=== PATIENT | male | born 1965 | race Caucasian/White ===

== ENCOUNTER 2016-08-19 11:12 | Emergency (ER) | payer OTHER ==
[~2016-08-19] VITALS: Ht 182.9 cm; Wt 63.5 kg
[2016-08-19] MEDS ORDERED: IOHEXOL 350 MG/ML 100 ML (OMNIPAQUE 350) VIAL IV ONE (11:30)
[2016-08-19] MEDS ORDERED: NS 100 ML (IVPB) BAG IV ONE (11:30)
[2016-08-19] MEDS ORDERED: NS IV 1000 ML 1,000 ML IV ONE (11:31)
[2016-08-19 11:38] LABS: MEAN PLATELET VOLUME 9.9 FL (7.4-10.4); RED BLOOD COUNT 4.88 10^6/uL (4.35-5.85); RED CELL DISTRIBUTION WIDTH 13.9 % (10.0-14.5); WHITE BLOOD COUNT 11.2 10^3/uL (4.3-11.0)
--- NOTE | 2016-08-19 11:48 | ED Fall/Injury ---
General Stated Complaint: FALL/MULTIPLE INJURIES Source: patient Exam Limitations: no limitations History of Present Illness Time seen by provider: 11:15 Initial Comments Here with complaint of left lower rib pain and left flank pain after falling through the floor at a house he was working on. He fell both legs through and got stopped by hitting his ribs and flank on a header board. This did completely arrest his fall. This occurred last night. He was seen at outpatient clinic and found to have blood in his urine. Sent here for further evaluation. Denies hitting his head or neck pain. Denies loss of consciousness. He apparently had microscopic blood in his urine. Denies breathing problems but states it hurts with deep breathing. Denies diarrhea. Occurred: yesterday Severity: moderate Injuries/Pain Location: chest, abdomen, back Loss of Consciousness: no loss of consciousness Modifying Factors: Improves With Immobilization, Worse With Movement Associated Symptoms (Fall): Abdominal Pain, Chest Pain, No Confusion, No Lightheadedness, Muscle Spasms, No Nausea/Vomiting, No Neck Pain, No Shortness of Air Allergies and Home Medications Allergies Coded Allergies: No Allergy Information Available (Unverified , 08/19/16) Home Medications Hydrocodone/Acetaminophen 1 Each Tablet, 1-2 EACH PO Q6H PRN for PAIN-MODERATE, #20 Ref 0 Prescribed by: JOO SMITH on 08/19/16 1311 Constitutional: see HPI, No chills, No fever Eyes: No Symptoms Reported Ears, Nose, Mouth, Throat: no symptoms reported Respiratory: see HPI Cardiovascular: see HPI Gastrointestinal: see HPI, No nausea, No vomiting Genitourinary: see HPI, hematuria Musculoskeletal: back pain, muscle pain Skin: change in color, lesions Psychiatric/Neurological: No Symptoms Reported All Other Systems Reviewed Negative Unless Noted: Yes Past Ifpljrv-Rlobak-Fkpwnz Hx Patient Social History Alcohol Use: Denies Use Recreational Drug Use: No Smoking Status: Never a Smoker Recent Foreign Travel: No Contact w/Someone Who Travel: No Surgeries HX Surgeries: No Respiratory Hx Respiratory Disorders: No Cardiovascular Hx Cardiac Disorders: No Neurological Hx Neurological Disorders: No Genitourinary Hx Genitourinary Disorders: No Gastrointestinal Hx Gastrointestinal Disorders: No (tetanus) Musculoskeletal Hx Musculoskeletal Disorders: No Endocrine Hx Endocrine Disorders: No HEENT HX ENT Disorders: No Cancer Hx Cancer: No Psychosocial Hx Psychiatric Problems: No Reviewed Nursing Assessment Reviewed/Agree w Nursing PMH: Yes Family Medical History Significant Family History: No Pertinent Family Hx Physical Exam Vital Signs Vital Sign - Last 12Hours 08/19/16 13:25 Pulse 70 Resp 18 Pulse Ox 99 Capillary Refill : General Appearance: WD/WN, mild distress HEENT: PERRL/EOMI, pharynx normal Neck: full range of motion, supple Cardiovascular: regular rate, rhythm, no murmur Respiratory: lungs clear, normal breath sounds, no respiratory distress, other (tender to left low rib margin. Moderate abrasion to posterior rib margin and across midline back.) Gastrointestinal: soft, tenderness (left upper quadrant and left flank) Back: normal inspection, no CVA tenderness, no vertebral tenderness Extremities: non-tender, normal inspection Neurologic/Psychiatric: alert, oriented x 3 Skin: warm/dry, ecchymosis, other (abrasion to left flank and left low rib margin that goes from the left flank to mid back. Approximately 6 x 18 cm.) Thaddeus Coma Score Best Eye Response: (4) Open Spontaneously Best Verbal Response: (5) Oriented Best Motor Response: (6) Obeys Commands Progress/Results/Core Measures Results/Orders Lab Results Laboratory Tests Test 08/19/16 11:24 08/19/16 12:50 Range/Units White Blood Count 11.2 H 4.3-11.0 10^3/uL Red Blood Count 4.88 4.35-5.85 10^6/uL Hemoglobin 16.0 13.3-17.7 G/DL Hematocrit 47 40-54 % Mean Corpuscular Volume 97 80-99 FL Mean Corpuscular Hemoglobin 33 25-34 PG Mean Corpuscular Hemoglobin Concent 34 32-36 G/DL Red Cell Distribution Width 13.9 10.0-14.5 % Platelet Count 274 130-400 10^3/uL Mean Platelet Volume 9.9 7.4-10.4 FL Sodium Level 139 135-145 MMOL/L Potassium Level 3.3 L 3.6-5.0 MMOL/L Chloride Level 102 98-107 MMOL/L Carbon Dioxide Level 29 21-32 MMOL/L Anion Gap 8 5-14 MMOL/L Blood Urea Nitrogen 13 7-18 MG/DL Creatinine 1.05 0.60-1.30 MG/DL Estimat Glomerular Filtration Rate > 60 BUN/Creatinine Ratio 12 Glucose Level 119 H 70-105 MG/DL Calcium Level 9.6 8.5-10.1 MG/DL Total Bilirubin 0.6 0.1-1.0 MG/DL Direct Bilirubin 0.2 0.0-0.3 MG/DL Indirect Bilirubin 0.4 MG/DL Aspartate Amino Transf (AST/SGOT) 21 5-34 U/L Alanine Aminotransferase (ALT/SGPT) 14 0-55 U/L Alkaline Phosphatase 101 40-136 U/L Total Protein 7.1 6.4-8.2 G/DL Albumin 4.2 3.2-4.5 G/DL Serum Alcohol < 10 <10 MG/DL Urine Color YELLOW Urine Clarity CLEAR Urine pH 8 5-9 Urine Specific [place] 1.010 L 1.016-1.022 Urine Protein 1+ H NEGATIVE Urine Glucose (UA) NEGATIVE NEGATIVE Urine Ketones NEGATIVE NEGATIVE Urine Nitrite NEGATIVE NEGATIVE Urine Bilirubin NEGATIVE NEGATIVE Urine Urobilinogen NORMAL NORMAL MG/DL Urine Leukocyte Esterase NEGATIVE NEGATIVE Urine RBC (Auto) NEGATIVE NEGATIVE Urine RBC NONE /HPF Urine WBC NONE /HPF Urine Squamous Epithelial Cells RARE /HPF Urine Crystals NONE /LPF Urine Bacteria NEGATIVE /HPF Urine Casts NONE /LPF Urine Mucus NEGATIVE /LPF Urine Culture Indicated NO My Orders Orders - JOO SMITH MD Cbc No Diff (08/19/16 11:21) Basic Metabolic Panel (08/19/16 11:21) Liver Panel (08/19/16 11:21) Alcohol (08/19/16 11:21) Ua Culture If Indicated (08/19/16 11:21) Saline Lock/Iv-Start (08/19/16 11:21) Ct Chest/Abdomen/Pelvis W (08/19/16 11:21) Iohexol Injection (Omnipaque 350 Mg/Ml 1 (08/19/16 11:30) Ns (Ivpb) (Sodium Chloride 0.9% Ivpb Bag (08/19/16 11:30) Ns Iv 1000 Ml (Sodium Chloride 0.9%) (08/19/16 11:31) Dipht,Pertuss(Acell),Tet Adult (Boostrix (08/19/16 11:51) Fentanyl Injection (Sublimaze Injection (08/19/16 12:42) Hydrocodone/Apap 7.5/325 Tab (Lortab 7. (08/19/16 12:42) Incentive Spirometryrt Initial (08/19/16 12:42) Incentive Spirometry (Nursing) Q2H (08/19/16 12:42) Medications Given in ED Current Medications Medications Dose Ordered Sig/Raúl Route Start Time Stop Time Status Last Admin Dose Admin Iohexol 100 ml ONCE ONCE IV 08/19/16 11:30 08/19/16 11:31 DC 08/19/16 11:34 100 ML Sodium Chloride 100 ml ONCE ONCE IV 08/19/16 11:30 08/19/16 11:31 DC 08/19/16 11:34 80 ML Sodium Chloride 1,000 ml @ 0 mls/hr Q0M ONCE IV 08/19/16 11:31 08/19/16 11:32 DC 08/19/16 11:51 0 MLS/HR Vital Signs/I&O Vital Sign - Last 12Hours 08/19/16 13:25 Pulse 70 Resp 18 Pulse Ox 99 Progress Note : Progress Note Seen and evaluated. IV, labs, UA, normal saline [address] chest, abdomen and pelvis ordered. Tetanus ordered. Monitor patient. Rib fractures noted. Fentanyl 50 g IV and hydrocodone 7.5 by mouth given. RT for incentive spirometer teaching. I did discuss the case with Dr. Michele at 1300. He will see patient in follow-up as needed. Patient and family informed of findings. Discharged home with return precautions. Patient verbalize understanding instructions and agreement with plan. ECG Initial ECG Impression Date: August 19, 2016 Diagnostic Imaging Diagonstic Imaging: CT Plain Films/CT/US/NM/MRI: chest, abdomen, pelvis Comments NAME: CABO [facility] REC#: [id number] PT STATUS: REG ER : 1965 PHYSICIAN: JOO SMITH MD ADMIT DATE: 08/19/16/ER Signed Date of Exam: 08/19/16 CT CHEST/ABDOMEN/PELVIS W PROCEDURE: CT chest, abdomen, and pelvis with contrast. TECHNIQUE: Multiple contiguous axial images were obtained through the chest, abdomen, and pelvis after the administration of intravenous contrast. INDICATION: Left upper quadrant and left flank pain. CONTRAST: 100 mL of Omnipaque 350 was administered intravenously. FINDINGS: CT CHEST: The lungs demonstrate no significant consolidation, mass, or suspicious nodule. There is minimal dependent atelectasis in the lower lobes bilaterally. The heart size is normal. The thoracic aorta is normal in caliber. There is no mediastinal mass. No hilar lymphadenopathy. No axillary lymphadenopathy. No pericardial or pleural effusion. The osseous structures appear grossly unremarkable. CT ABDOMEN/PELVIS: The liver demonstrates a hypodense lesion measuring 0.8 cm near the falciform ligament which is too small to accurately characterize. This is a common location for focal hepatic steatosis. The gallbladder is contracted with no calcified stone or CT evidence of cholecystitis. The pancreas, spleen, and adrenal glands appear unremarkable. The abdominal aorta is normal in caliber. No periaortic significantly enlarged lymph nodes are seen. No significant free fluid or fluid collection in the abdomen or pelvis is seen. The prostate appears mildly enlarged measuring 4.5 cm in transverse dimension and associated with nonspecific calcifications. The urinary bladder appears unremarkable. The appendix appears normal. The osseous structures appear grossly unremarkable. IMPRESSION: CT CHEST: Minimal dependent atelectasis in the posterior lower lungs. No significant abnormality. CT ABDOMEN/PELVIS: Minimal enlargement of the prostate gland. No acute process. Dictated by: Dictated on workstation # [id number] Dict: 08/19/16 1149 Trans: 08/19/16 1211 Interpreted by: IFRAH BRO MD Electronically signed by: IFRAH BRO MD 08/19/16 1211 ADDENDUM REPORT ADDENDUM: Dr. Smith has called to discuss some the CT chest portion. History of fall is actually provided with tenderness in the posterior lower left chest wall region. I agree with Dr. Smith that there are nondisplaced rib fractures involving the posterior aspect of the left 12th and the left 11th ribs. IMPRESSION: CT chest: 1. Nondisplaced left 12th and 11th rib fractures. 2. Minimal dependent atelectasis in the lower lungs. CT of the abdomen and pelvis: Minimal enlargement of the prostate gland. No acute process. Dictated by: Dictated on workstation # [id number] Interpreted by: IFRAH BRO MD Electronically signed by:IFRAH BRO MD 08/19/16 1240 Departure Impression Impression: Primary Impression: Multiple fractures of ribs, left side, initial encounter for closed fracture Additional Impressions: Back contusion Qualified Codes: S20.222A - Contusion of left back wall of thorax, initial encounter Abrasion Disposition: 01 HOME, SELF-CARE Condition: Stable Departure-Patient Inst. Decision time for Depature: 13:08 Referrals: NO,LOCAL PHYSICIAN (PCP/Family) Primary Care Physician Patient Instructions: CHEST CONTUSION, Rib Fracture (DC), Skin Abrasions (DC) Add. Discharge Instructions: Use incentive spirometer several times hourly while awake. You may take ibuprofen 800 mg every 8 hours as needed for pain. You may take Tylenol 1000 mg every 8 hours as needed for pain if you are not taking prescribed pain medicine. Drink plenty of fluids. He may follow up with your doctor or the trauma surgeon Dr. Graham in a few days for recheck and as needed. Return for worse pain, fever, vomiting, weakness, breathing problems or other concerns as needed. Scripts Hydrocodone/Acetaminophen (Hydrocodon -Acetaminophen 5-325) 1 Each Tablet 1-2 EACH PO Q6H Y for PAIN-MODERATE, #20 TAB 0 Refills Prov: JOO SMITH MD 08/19/16 Copy Copies To 1: ELENO GRAHAM TIMOTHY D MD August 19, 2016 11:48
[2016-08-19] MEDS ORDERED: TETANUS,DIPTH,PERTUSS P/F (BOOSTRIX) 0.5 ML VIAL IM STA (11:51)
[2016-08-19 11:58] LABS: ALANINE AMINOTRANSFERASE 14 U/L (0-55); ALBUMIN 4.2 G/DL (3.2-4.5); ANION GAP 8 MMOL/L (5-14); ASPARTATE AMINO TRANSFERASE 21 U/L (5-34); BILIRUBIN,DIRECT 0.2 MG/DL (0.0-0.3); BILIRUBIN,INDIRECT 0.4 MG/DL; BILIRUBIN,TOTAL 0.6 MG/DL (0.1-1.0); BLOOD UREA NITROGEN 13 MG/DL (7-18); BUN/CREATININE RATIO 12; CALCIUM 9.6 MG/DL (8.5-10.1); CARBON DIOXIDE 29 MMOL/L (21-32); CHLORIDE 102 MMOL/L (98-107); CREATININE SERUM 1.05 MG/DL (0.60-1.30); GFR ESTIMATED > 60; GLUCOSE 119 MG/DL (70-105); POTASSIUM 3.3 MMOL/L (3.6-5.0); SODIUM 139 MMOL/L (135-145); TOTAL PROTEIN 7.1 G/DL (6.4-8.2)
[2016-08-19 12:00] LABS: ALCOHOL < 10 MG/DL (<10)
--- NOTE | 2016-08-19 12:06 | Diagnostic Imaging Report ---
PROCEDURE: CT chest, abdomen, and pelvis with contrast. TECHNIQUE: Multiple contiguous axial images were obtained through the chest, abdomen, and pelvis after the administration of intravenous contrast. INDICATION: Left upper quadrant and left flank pain. CONTRAST: 100 mL of Omnipaque 350 was administered intravenously. FINDINGS: CT CHEST: The lungs demonstrate no significant consolidation, mass, or suspicious nodule. There is minimal dependent atelectasis in the lower lobes bilaterally. The heart size is normal. The thoracic aorta is normal in caliber. There is no mediastinal mass. No hilar lymphadenopathy. No axillary lymphadenopathy. No pericardial or pleural effusion. The osseous structures appear grossly unremarkable. CT ABDOMEN/PELVIS: The liver demonstrates a hypodense lesion measuring 0.8 cm near the falciform ligament which is too small to accurately characterize. This is a common location for focal hepatic steatosis. The gallbladder is contracted with no calcified stone or CT evidence of cholecystitis. The pancreas, spleen, and adrenal glands appear unremarkable. The abdominal aorta is normal in caliber. No periaortic significantly enlarged lymph nodes are seen. No significant free fluid or fluid collection in the abdomen or pelvis is seen. The prostate appears mildly enlarged measuring 4.5 cm in transverse dimension and associated with nonspecific calcifications. The urinary bladder appears unremarkable. The appendix appears normal. The osseous structures appear grossly unremarkable. IMPRESSION: CT CHEST: Minimal dependent atelectasis in the posterior lower lungs. No significant abnormality. CT ABDOMEN/PELVIS: Minimal enlargement of the prostate gland. No acute process. Dictated by: Dictated on workstation # [id number]
[2016-08-19] MEDS ORDERED: fentaNYL INJECTION 100 MCG/2 ML AMP IVP STA (12:42)
[2016-08-19] MEDS ORDERED: HYDROcodone/APAP 7.5 MG/325 MG (LORTAB, LORCET PLUS) TABLET PO STA (12:42)
[2016-08-19 13:03] LABS: BILIRUBIN,URINE NEGATIVE (NEGATIVE); KETONES,URINE NEGATIVE (NEGATIVE); LEUKOCYTE ESTERASE ,URINE NEGATIVE (NEGATIVE); NITRITE,URINE NEGATIVE (NEGATIVE); PH,URINE 8 (5-9); PROTEIN,URINE 1+ (NEGATIVE); UROBILINOGEN,URINE NORMAL (NORMAL)
[2016-08-19] MEDS ORDERED: HYDR-3812 PO (13:11)
[2016-08-19 13:15] LABS: SQUAMOUS EPITHELIAL CELL,UR RARE /HPF
[2016-08-19 13:25] VITALS: BP 106/70
== END 2016-08-19 13:26 | disposition home or self-care (01) ==
LOC: EDUNIT# 11:12 → ER 11:15
DX: S22.42XA Multiple fractures of ribs, left side, initial encounter for closed fracture (principal); S20.412A Abrasion of left back wall of thorax, initial encounter; S30.811A Abrasion of abdominal wall, initial encounter; Z23 Encounter for immunization; R31.29 Other microscopic hematuria; W13.3XXA Fall through floor, initial encounter; Y93.E9 Activity, other interior property and clothing maintenance; Y92.019 Unspecified place in single-family (private) house as the place of occurrence of the external cause
CPT/HCPCS: 36415; 71260; 74177; 80048; 80076; 80320; 81000; 85027; 90715; 94664

== ENCOUNTER 2017-06-08 14:12 | Observation (INO) | payer OTHER ==
[~2017-06-08] VITALS: Ht 182.9 cm; Wt 69.5 kg
[~2017-06-08 14:12] MED LIST changes: -ceFAZolin 1,000 MG (ANCEF) VIAL ONE
[2017-06-08 14:20] VITALS: BP 129/84
[2017-06-08] MEDS ORDERED: CATHETER FLUSH 10 ML SYR IV PRN (14:30)
[2017-06-08] MEDS ORDERED: fentaNYL INJECTION 100 MCG/2 ML AMP IV PRN (14:30)
[2017-06-08] MEDS ORDERED: NS IV 1000 ML 1,000 ML IV SCH (14:30)
[2017-06-08] MEDS ORDERED: ONDANSETRON 4 MG/2 ML (SDV) Z0FRAN IV PRN (14:30)
--- NOTE | 2017-06-08 14:37 | History & Physical-Surgical ---
HPO-Surgical History of Present Illness Chief Complaint: This is a 52 year old male who was referred to our office from Urgent Care for right lower quadrant pain. Patient reports that the pain started last night around 5:00 PM and was very sharp around the umbilicus. He reports that as the night progressed the pain continued by localized to the RLQ. He denies any fever or chills, no diarrhea but does reports constipation. No nausea or vomiting. He does report a headache but reports he has not had anything to eat today and very little to drink. He reports that he presented to Urgent Care this morning and lab work was perfromed which showed an elevated WBC at 13.08. He was then sent for a CT scan where it showed an acute appenditiis. Diagnosis/Surgical Indication: Acute Appendicitis Procedure: Laparoscopic Appendectomy Date of Surgery: Jun 08, 2017 Weight (Pounds): 153 Weight (Ounces): 3.0 Height (Feet): 6 Height (Inches): 0.00 Allergies and Home Medications Allergies Coded Allergies: No Allergy Information Available (Unverified , 08/19/16) Home Medications Hydrocodone Bit/Acetaminophen 1 Each Tablet, 1-2 EACH PO Q6H PRN for PAIN- MODERATE Prescribed by: JOO SMITH on 08/19/16 1311 Patient Home Medication List Home Medication List Reviewed: Yes Past Vctmbuw-Lhabxv-Zcmmez Hx Patient Social History Recent Foreign Travel: No Contact w/other who traveled: No Recent Hopitalizations: No Immunizations Up To Date Tetanus Booster (TDap): Unknown Seasonal Allergies Seasonal Allergies: No Surgeries No Respiratory No Cardiovascular No Neurological No Genitourinary No Gastrointestinal No Musculoskeletal No Endocrine History of Endocrine Disorders: No HEENT History of HEENT Disorders: No Cancer No Psychosocial History of Psychiatric Problem: No Integumentary History of Skin or Integumenta: No Blood Transfusions History of Blood Disorders: No Family Medical History Significant Family History: No Pertinent Family Hx Exam Vital Signs B/P: 110/60 Wt: 160.6 Ht: 6'0" Labs WBC 13.08 Hgb: 15.2 Hct: 45.0 Plt: 272 NA: 137 K: 4.4 CL: 100 CO2: 31 Creat: 0.9 GFR: 96 BUN: 17 CRP: 2.4 General Appearance: Alert, Oriented X3, Cooperative, No Acute Distress Respiratory: Clear to Auscultation, Normal Air Movement Cardiovascular: Regular Rate Abdominal: Normal Bowel Sounds, Soft, Other (Tenderness RLQ with palpation) Extremities: No Clubbing, No Cyanosis, No Edema, Normal Pulses, No Tenderness/ Swelling Skin: No Rashes, No Breakdown, No Significant Lesion Neuro: Normal Gait, Normal Speech Psych/Mental Status: Mental Status NL, Mood NL Assessment/Plan Assessment and Plan A 52 year old male with Acute appendicitis. The risks, benefits, and home care instructions were explained to patient. At this time we will proceed with a laparoscopic appendectomy. Problems: Admission Diagnosis Acute Appendicitis Copy Copies To 1: CARYN MAXWELL MD, DUSTIN L APRN Jun 08, 2017 2:37 pm
[2017-06-08] MEDS ORDERED: LIDOCAINE PF 2% 5 ML (XYLOCAINE) VIAL ONE (14:51)
[2017-06-08] MEDS ORDERED: proPOfol 200 MG/20 ML (DIPRIVAN) VIAL IV ONE (14:51)
[2017-06-08] MEDS ORDERED: ONDANSETRON 4 MG/2 ML (SDV) Z0FRAN ONE (14:51)
[2017-06-08] MEDS ORDERED: DEXAMETHASONE 10 MG/ML (DECADRON) 1 ML VIAL ONE (14:51)
[2017-06-08] MEDS ORDERED: BUP/EPI 0.5% 1:200,000 (SENSORCAINE) 30 ML VIAL ONE (14:52)
[2017-06-08] MEDS ORDERED: fentaNYL INJECTION 100 MCG/2 ML AMP ONE (14:52)
[2017-06-08] MEDS ORDERED: MIDAZOLAM 2 MG/2 ML (VERSED) VIAL ONE (14:52)
--- NOTE | 2017-06-08 14:54 | Progress Note-Pre Operative ---
Pre-Operative Progress Note H&P Reviewed The H&P was reviewed, patient examined and no changes noted. Date Seen by Provider: Jun 08, 2017 Time Seen by Provider: 14:45 Date H&P Reviewed: Jun 08, 2017 Time H&P Reviewed: 14:45 Pre-Operative Diagnosis: acute appendicitis CARYN MAXWELL MD Jun 08, 2017 14:54
[2017-06-08] MEDS: LACTATED RINGERS 1,000 ML IV PRN ×2 (15:00→15:30)
[2017-06-08] MEDS ORDERED: CIPROFLOXACIN IV 400MG/200ML 200 ML IV SCH ×2 (15:00→18:00)
[2017-06-08] MEDS: metroNIDAZOLE 500MG/100ML IVPB 100 ML IV SCH ×2 (15:02→21:00)
[2017-06-08] MEDS ORDERED: SEVOFLURANE (ULTANE) 15 ML INHAL SOLN ONE (15:39)
[2017-06-08] MEDS ORDERED: ROCURONIUM 10 MG/ML 5 ML SYRINGE IV ONE (15:39)
[2017-06-08] MEDS ORDERED: PHENYLEPHRINE 100 MCG/ML 10 ML (ANESTHESIA) SYR ONE (15:39)
[2017-06-08] MEDS ORDERED: morphine INJ 10 MG/ML 1ML (SYR OR VIAL) IVP PRN (15:45)
[2017-06-08] MEDS ORDERED: fentaNYL INJECTION 100 MCG/2 ML AMP IVP PRN (15:45)
[2017-06-08] MEDS ORDERED: HYDROmorphone (DILAUDID) 2 MG/ML VIAL IVP PRN (15:45)
[2017-06-08] MEDS ORDERED: ONDANSETRON 4 MG/2 ML (SDV) Z0FRAN IVP PRN (15:45)
[2017-06-08] MEDS ORDERED: ceFAZolin 1,000 MG (ANCEF) VIAL IV ONE (15:45)
--- NOTE | 2017-06-08 15:52 | Progress Note-Post Operative ---
Post-Operative Progess Note Surgeon (s)/Farm Loan Representative (s) Surgeon CARYN MAXWELL MD Farm Loan Representative: curt bowman NOZZLEMAN Pre-Operative Diagnosis acute appendicitis Post-Operative Diagnosis same Procedure & Operative Findings Date of Procedure 06/08/17 Procedure Performed/Findings laparoscopic appendectomy Anesthesia Type GET Estimated Blood Loss Estimated blood loss (mL): minimal Specimens/Packing Specimens Removed appendix CARYN MAXWELL MD Jun 08, 2017 3:52 pm
[2017-06-08] MEDS ORDERED: HYDROcodone/APAP 7.5 MG/325 MG (LORTAB, LORCET PLUS) TABLET PO PRN (16:00)
--- NOTE | 2017-06-08 16:00 | Discharge Inst-Surgical ---
D/C Lap Instructions-ALISSA New, Converted, or Re-Newed RX: RX on Chart Follow Up Appt in 2 weeks Activity as tolerated No driving for 24 hours No driving while on pain medications Incentive Spirometry use every 2 hours while awake Regular Diet Symptoms to Report: Fever over 101 degree F, Nausea/Vomiting Infection Signs and Symptoms to report: Increased redness, Foul odor of wound, Increased drainage Bathing instructions: May shower Operative Area Clean/Dry; Keep incision clean/dry If any problems/questions: Contact your physician or go to Emergency Room CARYN MAXWELL MD Jun 08, 2017 4:00 pm
[2017-06-08] MEDS ORDERED: NEOSTIGMINE 1 MG/ML 5 ML SYRINGE ONE (16:03)
[2017-06-08] MEDS ORDERED: GLYCOPYRROLATE 0.2 MG/ML (ROBINUL) 2 ML VIAL ONE (16:03)
[2017-06-08] MEDS ORDERED: MEPERIDINE (DEMEROL) INJ 50 MG/ML ONE (16:06)
[2017-06-08] MEDS: MEPERIDINE (DEMEROL) INJ 50 MG/ML IVP PRN ×2 (16:11→16:21)
[2017-06-08 17:05] VITALS: BP 124/70
[2017-06-08 17:13] VITALS: BP 124/70
--- NOTE | 2017-06-08 19:04 | HISTORY AND PHYSICAL ---
DATE OF SERVICE: HISTORY OF PRESENT ILLNESS: This patient is a 52-year-old male who presented to urgent care with a 1 day history of pain that was first was more diffuse in the umbilical region; however, that started last night and then localized to the right lower abdominal quadrant this morning. He did not report any nausea, no vomiting as well as no fever, no chills. A CT scan was performed, which did show inflammation of the appendix consistent with acute appendicitis. He also does have a mild leukocytosis with a white count of 12. Upon examination, he does have pain at McBurney's point consistent with an acute appendicitis. PAST MEDICAL HISTORY: None. PAST SURGICAL HISTORY: None. ALLERGIES: No known drug allergies. MEDICATIONS: None. SOCIAL HISTORY: Negative smoke, social alcohol. FAMILY HISTORY: Noncontributory. REVIEW OF SYSTEMS: Well-nourished male, currently in no acute distress. He is not experiencing any shortness of breath or difficulty breathing. No chest pain, palpitations, diaphoresis. No nausea, vomiting. No diarrhea, constipation. No fever, chills. No recent inadvertent weight loss. All other review of systems negative. PHYSICAL EXAMINATION: VITAL SIGNS: Stable, afebrile. Current weight is 69.4 kg with a body mass index of 20.8. CHEST: Clear. Good breath sounds bilaterally. HEART: Regular, no murmurs. EXTREMITIES: No lower extremity edema. Negative Homans sign. HEENT: No scleral icterus. No cervical lymphadenopathy. ABDOMEN: Soft, nondistended. There is pain in the right lower abdominal quadrant at McBurney's point with voluntary guarding, no rebound. SKIN: Warm, dry. ASSESSMENT AND PLAN: [id number] male with acute appendicitis. The natural history of appendicitis was explained to the patient including risks and benefits of surgery and he is in full understanding of this and would like to proceed with a laparoscopic appendectomy, which we will schedule. Job ID: [id number] DocumentID: [id number] Dictated Date: 06/08/2017 14:53:26 Quality Assurance Monitor Final Date: 06/08/2017 15:57:58 Dictated By: CARYN MAXWELL MD
[2017-06-08 20:00] VITALS: BP 117/67
--- NOTE | 2017-06-09 00:49 | OPERATIVE REPORT ---
DATE OF SERVICE: 06/08/2017 PREOPERATIVE DIAGNOSIS: Acute appendicitis. POSTOPERATIVE DIAGNOSIS: Acute appendicitis. PROCEDURE PERFORMED: Laparoscopic appendectomy. SURGEON: Caryn Maxwell MD. ERP SPECIALIST: Garret Ortiz APRN. ANESTHESIA: General endotracheal. ESTIMATED BLOOD LOSS: Minimal. FINDINGS: Acute appendicitis with inflammation of the appendix with no perforation. What visualized was the small bowel and omentum as well as colon appeared normal. DISPOSITION: The patient tolerated the procedure well. INDICATIONS: The patient is a 52-year-old male, who presented to urgent care center with a 1-day history of abdominal pain. He states that the pain started approximately 7:00 p.m. the night before and was more localized. He reports that he felt that this might go away once asleep; however, woke up early this morning with pain more localized towards the right lower abdominal quadrant, which was constant. A CT scan was performed, which did show edema and inflammation of the appendix consistent with acute appendicitis and he did have a slight leukocytosis with a white count of 12. DESCRIPTION OF PROCEDURE: The patient was brought to the operating room, laid supine on the table. After adequate IV pain and sedating medications and general endotracheal intubation, the abdomen was prepped and draped in standard surgical fashion. Marcaine 0.5% with epinephrine was then used to anesthetize the overlying skin in the left upper abdominal quadrant. A small transverse skin incision was made using 15-blade. An #0 silk suture was applied to the medial aspect of the incision for retraction and a Veress needle inserted with a low opening pressure of 0 mmHg and the abdomen was then insufflated to 15 mmHg pressure. The Veress needle removed and a 5 mm Xcel trocar placed followed by a 5 mm 45-degree angle laparoscope visualizing the peritoneal cavity. The patient was then placed in Trendelenburg position as well as plane right side up, left side down. The omentum, small bowel, colon, stomach, and liver appeared normal. There was a dilated appendix with edema consistent with an acute appendicitis with no perforation identified. Under direct visualization, we then proceed to place a supraumbilical 10 mm port after the skin and peritoneal lining were anesthetized using 0.5% Marcaine with epinephrine and a transverse skin incision made using a 15-blade. In a similar manner, a suprapubic 5 mm port was placed. The appendix was then retracted towards the anterior abdominal wall and a window was then created between the base of the appendix and the mesoappendix using a [place] dissector. The appendix was then stapled and transected at the cecal base using a ROSANA 60 mm stapler with a 2.5 mm thickness load. The mesoappendix was then stapled and transected with the same stapler with a 2.0 mm thickness reload with visualization of good hemostasis. The appendix was removed through the 10 mm port site using an EndoCatch bag. The 10 mm port site fascia and peritoneum were then closed under direct visualization using a Ced-Tim device and an #0 Vicryl suture. The abdomen was desufflated and remaining ports removed. All skin incisions were closed using 4-0 Monocryl running subcuticular sutures. Wounds were then cleaned and covered with Dermabond. The patient tolerated the procedure well. We will start IV and oral pain medication as well as a clear liquid diet. Once he is tolerating clears, he has good pain control with oral pain medications, ambulated well, we will discharge him home. Job ID: [id number] DocumentID: [id number] Dictated Date: 06/08/2017 16:06:21 Hiv/Aids Care Nurse Date: 06/09/2017 00:49:02 Dictated By: CARYN MAXWELL MD
--- NOTE | 2017-06-09 09:16 | Anesthesia-General Post-Op ---
General Patient Condition Mental Status/LOC: Same as Preop Cardiovascular: Satisfactory Nausea/Vomiting: Absent Respiratory: Satisfactory Pain: Controlled Complications: Absent Post Op Complications Complications None Follow Up Care/Instructions Patient Instructions None needed. Anesthesia/Patient Condition Patient Condition Patient is doing well, no complaints, stable vital signs, no apparent adverse anesthesia problems. No complications reported per nursing. CATHY TRAN CRNA Jun 09, 2017 09:16
== END 2017-06-08 23:04 | disposition home or self-care (01) ==
LOC: 4TH 14:12
PROVIDERS: ADMIT Surgery; ATTEND Surgery
DX: K35.80 Unspecified acute appendicitis (principal)

== ENCOUNTER → 2017-06-08 | Outpatient (CLI) | payer OTHER ==
[~2017-06-08] MED LIST: ACHD5005 PO; ceFAZolin 1,000 MG (ANCEF) VIAL ONE
--- NOTE | 2017-06-08 12:46 | Diagnostic Imaging Report ---
PROCEDURE: CT abdomen and pelvis without contrast. TECHNIQUE: Multiple contiguous axial images were obtained through the abdomen and pelvis without the use of intravenous contrast. INDICATION: Periumbilical pain. Right lower quadrant abdominal pain. Leukocytosis. COMPARISON: 08/19/2016. FINDINGS: Included portions of the lung bases are clear. CT abdomen: There is acute appendicitis. The appendix is abnormally prominent measuring 10 mm in diameter. There is also [id number] abnormal stranding of the periappendiceal fat. There is no free fluid, free air, nor loculated air-fluid collection. There is no pneumatosis nor portal venous gas. Proximal small bowel loops are nondistended. The kidneys, spleen, pancreas, adrenal glands, and liver have an unremarkable noncontrast CT appearance. No abnormal mesenteric or retroperitoneal adenopathy is seen. Bony structures show no acute abnormalities. CT pelvis: Urinary bladder is unopacified. No calculi are seen within urinary bladder. There is no loculated fluid collection, free fluid, nor free air within the pelvis. No abnormal adenopathy is seen. Bony structures show no acute abnormalities. IMPRESSION: Acute appendicitis. There is no evidence of rupture at this time. Results are called to Jennifer Marie by Dr. Meek at approximately 1235 hrs. on 06/08/2017. Dictated by: Dictated on workstation # [id number]
== END ==
LOC: RAD 12:03
PROVIDERS: ATTEND Nurse Practitioner Family
DX: K35.80 Unspecified acute appendicitis (principal); D72.829 Elevated white blood cell count, unspecified; R79.82 Elevated C-reactive protein (CRP)
CPT/HCPCS: 74176

== ENCOUNTER → 2020-05-07 | Outpatient (CLI) | payer OTHER ==
--- NOTE | 2020-05-07 12:30 | Diagnostic Imaging Report ---
PROCEDURE: US Thyroid. TECHNIQUE: Multiple real-time grayscale images were obtained of the thyroid in various projections. INDICATION: Hypothyroidism. Right lobe of thyroid measures 4.9 x 1.7 x 1.2 cm and left lobe measures 3.7 x 1.0 x 1.7 cm. Isthmus is 3 mm in thickness. Both lobes are somewhat heterogeneous. There is a hypoechoic lesion with echogenic center in the upper pole left lobe approximately 4 mm in size. This may represent a colloid cyst. No other thyroid masses are detected. 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 No dominant thyroid mass is detected. Dictated by: Dictated on workstation # [id number]
== END ==
LOC: RAD 11:57
PROVIDERS: ATTEND Nurse Practitioner Family
DX: Z76.0 Encounter for issue of repeat prescription (principal); E03.8 Other specified hypothyroidism; D72.828 Other elevated white blood cell count; H65.03 Acute serous otitis media, bilateral; R53.83 Other fatigue; H69.83 Other specified disorders of Eustachian tube, bilateral
CPT/HCPCS: 76536